=== PATIENT | female | born 1960 | race Caucasian/White ===

== ENCOUNTER 2022-02-07 12:27 | Emergency (ER) | payer OTHER, SELFPAY ==
[2022-02-07 12:32] VITALS: BP 198/92; PULSE 71; RESP 18; TEMP 36.8; O2SAT 94; BMI 51.6
--- NOTE | 2022-02-07 14:08 | USCV_ITS ---
Alexei Kae Age: 61 Gender: F : 1960 Exam Date: 02/07/2022 14:36 Ordering Phys: Dayan Wells MD Technologist: Dalton Irene [place] [facility] [place]ication: bilat leg pain and edema PROCEDURES: The venous duplex Doppler examination of both lower extremities was performed in the standard fashion. The following venous structures were evaluated: common femoral vein, profunda vein, proximal portion of the greater saphenous vein, superficial femoral vein, and the popliteal vein. In addition, the posterior tibial and peroneal trunk were evaluated. FINDINGS: Normal 2-D Doppler and augmentation and compressibility throughout the lower extremity venous structures. Additional imaging through the proximal calf veins also reveals no thrombus. Limited evaluation of the greater saphenous vein is patent with no thrombus. CONCLUSIONS No DVT bilateral lower extremities. Dr. Marisabel Rubio DO (Electronically Signed) Final Date: 07 February 2022 15:14 S
[2022-02-07 14:23] LABS: Basophils % 0.5 %; Eosinophils # 0.3 10^3/uL (0.0-0.8); Eosinophils % 3.6 %; Hematocrit 30.1 % (37.0-47.0); Hemoglobin 9.5 g/dL (11.5-15.3); Lymphocytes # 1.7 10^3/uL (0.8-4.8); Lymphocytes % 21.5 %; Mean Corpuscular HGB Conc 31.6 g/dL (30.0-36.0); Mean Corpuscular Hemoglobin 29.5 pg (28.0-34.0); Mean Corpuscular Volume 93.5 fl (81-99); Mean Platelet Volume 10.7 fL (7.4-10.4); Monocytes # 0.6 10^3/uL (0.2-0.9); Neutrophils # 5.39 10^3/uL (1.8-7.7); Neutrophils % 66.9 %; Nucleated Red Blood Cells % 0 %; Platelet Count 219 10^3/cmm (130-400); Red Blood Count 3.22 10^6/uL (4.1-5.3); Red Cell Distribution Width 13.6 % (12.1-15.1); White Blood Count 8.1 10^3/uL (4.0-10.0)
--- NOTE | 2022-02-07 14:35 | XR_ITS ---
WS: [email or web address] Exam: XR tibia fibula LT 2V [id number] Date/Time of Exam: 02/07/2022 2:40 PM Reason For Exam: leg pain No acute fracture or dislocation noted. Venous calcifications in the adjacent soft tissues. XR/XR tibia fibula LT 2V 31519 IMPRESSION: 1. No acute fracture or dislocation.
--- NOTE | 2022-02-07 14:35 | XR_ITS ---
WS: [email or web address] Exam: XR tibia fibula RT 2V [id number] Date/Time of Exam: 02/07/2022 2:40 PM Reason For Exam: leg pain No acute fracture or dislocation. Articular relationships are intact. XR/XR tibia fibula RT 2V 39713 IMPRESSION: 1. Negative right tibia and fibula.
--- NOTE | 2022-02-07 14:35 | XR_ITS ---
WS: [email or web address] Exam: XR ankle LT 2V 37908 Date/Time of Exam: 02/07/2022 2:40 PM Reason For Exam: ankle pain No acute fracture or dislocation. The ankle mortise is preserved. Mild degenerative change. XR/XR ankle LT 2V 76291 IMPRESSION: 1. No acute fracture or dislocation.
--- NOTE | 2022-02-07 14:35 | XR_ITS ---
WS: [email or web address] Exam: XR ankle RT 2V [id number] Date/Time of Exam: 02/07/2022 2:40 PM Reason For Exam: ankle pain No acute fracture or dislocation. The ankle mortise is preserved. Lateral soft tissue swelling. XR/XR ankle RT 2V 43648 IMPRESSION: 1. Lateral soft tissue swelling. No acute fracture.
--- NOTE | 2022-02-07 14:36 | ED_ITS ---
HPI - General Adult General: Chief complaint: General Medical Stated complaint: Internal Bleeding Time Seen by Provider: 02/07/22 13:51 History of Present Illness: Patient is a 61-year-old female with a history of atrial fibrillation on warfarin, CHF, diabetes on insulin presenting to the emergency room with concerns of lower extremity leg pain and bruises. Patient was told to come to the emergency room because she has been having bilateral leg pain since Sunday. In addition, patient noticed petechiae on the right ankle area. Patient denies any trauma or bruises. Patient has pain bilaterally in the lower extremity denies any new chest pain, shortness breath or palpitation cough, runny nose sore throat, abdominal pain, diarrhea melena/hematochezia. Of note, patient had a recent INR check from last week which showed the patient has a INR of greater than 4. Patient was told to come to the emergency room to check her INR. Onset:4 days ago Duration:4 days Location:home Severity:moderate Associated symptoms: Deny chest pain, dyspnea, nausea, palpitations or vomiting Review of Systems Const: Denies: fever(s) or chills Eyes: Denies: change in vision ENMT: Denies: mouth pain Card: Denies: chest pain or palpitations Resp: Denies: dyspnea or non-productive cough GI: Denies: abdominal pain, nausea, vomiting or diarrhea : Denies: dysuria Musc: Reports: extremity pain (+b/l leg pain and swelling) Skin/Breast: Reports: new lesions (+petchiae in the R ankle) Neuro: Denies: weakness in extremities Psych: Reports: other (Normal mood) [place]/Lymph: Denies: easy bruising PFS ED PFSH: Medical History Atrial fibrillation CHF (congestive heart failure) Diabetes Hypothyroidism Social History Smoking and tobacco status: never smoked Alcohol intake: never Substance/Drug Use: never Physical Exam Const: COMMON NORMALS: alert HENMT: COMMON NORMALS: atraumatic HEAD & SCALP: atraumatic MOUTH: moist mucous membranes not abnormal Eye: COMMON NORMALS: EOMs intact bilaterally and conjunctivae normal CONJUNCTIVA: Yes conjunctivae normal Neck/C-Spine: COMMON NORMALS: full ROM and supple Resp: COMMON NORMALS: normal respiratory effort and clear to auscultation bilaterally AUSCULTATION: clear to auscultation bilaterally Cardio: COMMON NORMALS: regular rate RATE: regular rate GI: COMMON NORMALS: Soft to palpation and non-tender PALPATION: Yes Soft to palpation Extremity: COMMON NORMALS: full ROM NARRATIVE EXTREMITY EXAM: 3+ pitting edema b/l in the lower extremities Mild tenderness to palpation over the lower extremities bilaterally Sensations intact in the legs bilaterally, 2+ DP/PT pulses bilaterally B/l tib/fib compartments soft and nontense Neuro: SENSORIUM/ORIENTATION: Yes alert MOTOR EXAM: No Abnormal motor strength present and Other motor observations present (no focal motor deficits) Psych: COMMON NORMALS: speech normal SPEECH: Yes normal speech MOOD & AFFECT: Yes euthymic mood Skin: OTHER: +petchaiea in the R ankle Course Vital Signs: Vital signs: Vital Signs Temperature 98.3 F 02/07/22 12:32 Pulse Rate 71 02/07/22 12:32 Respiratory Rate 18 02/07/22 12:32 Blood Pressure 198/92 02/07/22 12:32 Pulse Oximetry 94 02/07/22 12:32 Oxygen Delivery Me thod 02/07/22 12:32 MDM - General Adult Medical Decision Making 61-year-old female with history of atrial fibrillation on warfarin, CHF, hypothyroidism, diabetes presenting to the emergency room for evaluation of petechiae in the right ankle and bilateral leg pain. On physical exam, patient is neurovascularly intact. Patient has mild diffuse tenderness palpation of the lower legs. Patient has no signs of compartment syndrome and the tib-fib area bilaterally. X-ray and ultrasound negative for any acute findings. At the present, patient does not demonstrating signs of compartment syndrome or arterial occlusion in the lower extremities. Disposition: Discharge. Patient counseled regarding diagnostic impression, treatment plan. Patient given ED strict return precautions to return for continuation, worsening, or development of new symptoms. Instructed to f/u w/ PCP regarding symptoms today. Patient verbalized understanding. Lab Data : 02/07/22 14:10 02/07/22 14:10 Radiology Impressions Ankle X-Ray 02/07/22 14:35 IMPRESSION: 1. Lateral soft tissue swelling. No acute fracture. Tibia/Fibula X-Ray 02/07/22 14:35 IMPRESSION: 1. Negative right tibia and fibula. Laboratory Results WBC 8.1 10^3/uL (4.0-10.0) 02/07/22 14:10 RBC 3.22 10^6/uL (4.1-5.3) L 02/07/22 14:10 Hgb 9.5 g/dL (11.5-15.3) L 02/07/22 14:10 Hct 30.1 % (37.0-47.0) L 02/07/22 14:10 MCV 93.5 fl (81-99) 02/07/22 14:10 MCH 29.5 pg (28.0-34.0) 02/07/22 14:10 MCHC 31.6 g/dL (30.0-36.0) 02/07/22 14:10 RDW 13.6 % (12.1-15.1) 02/07/22 14:10 Plt Count 219 10^3/cmm (130-400) 02/07/22 14:10 MPV 10.7 fL (7.4-10.4) H 02/07/22 14:10 Neut % (Auto) 66.9 % 02/07/22 14:10 Lymph % (Auto) 21.5 % 02/07/22 14:10 [place] % (Auto) 7.0 % 02/07/22 14:10 Eos % (Auto) 3.6 % 02/07/22 14:10 Baso % (Auto) 0.5 % 02/07/22 14:10 Neut # (Auto) 5.39 10^3/uL (1.8-7.7) 02/07/22 14:10 Lymph # (Auto) 1.7 10^3/uL (0.8-4.8) 02/07/22 14:10 [place] # (Auto) 0.6 10^3/uL (0.2-0.9) 02/07/22 14:10 Eos # (Auto) 0.3 10^3/uL (0.0-0.8) 02/07/22 14:10 Baso # (Auto) 0.0 10^3/uL (0.0-0.1) 02/07/22 14:10 Nucleated RBC % (auto) 0 % 02/07/22 14:10 Nucleated RBCs # 0.0 /100WBC 02/07/22 14:10 PT 29.70 SECONDS (12.1-14.9) H 02/07/22 14:10 INR 2.79 (0.8-1.2) H 02/07/22 14:10 APTT 43.0 SECONDS (23.9-36.7) H 02/07/22 14:10 Sodium 142 mmol/L (136-145) 02/07/22 14:10 Potassium 4.8 mmol/L (3.5-5.1) 02/07/22 14:10 Chloride 106 mmol/L (98-107) 02/07/22 14:10 Carbon Dioxide 26 mmol/L (22-29) 02/07/22 14:10 Anion Gap 14.8 (5-19) 02/07/22 14:10 BUN 35 mg/dL (8-23) H 02/07/22 14:10 Creatinine 1.4 mg/dL (0.5-0.9) H 02/07/22 14:10 GFR Calculation 38.2 mL/min (90-130) L 02/07/22 14:10 Glucose 109 mg/dL (65-115) 02/07/22 14:10 Calculated Osmolality 303 mOsm/kg (285-295) H 02/07/22 14:10 Calcium 9.6 mg/dL (8.5-10.5) 02/07/22 14:10 Imaging Data Other Imaging: Radiologist's impression: [address] [address] XRay Report Signed Patient: Kae Linda Unit #: [id number] : 1960 Age/Sex: 61 / F ADM Date: 02/07/22 Loc: ER Room/Bed: Attending Dr: Ordering Provider/Ordering MD: Dayan Wells MD Date of Service: 02/07/22 Procedure(s): XR tibia fibula RT 2V 30707 Accession Number(s): [id number] Report Number: [id number] WS: [email or web address] Exam: XR tibia fibula RT 2V 68349 Date/Time of Exam: 02/07/2022 2:40 PM Reason For Exam: leg pain No acute fracture or dislocation. Articular relationships are intact. XR/XR tibia fibula RT 2V 67796 IMPRESSION: 1. Negative right tibia and fibula. ? Dictated By: Herbert Piña DO Signed By: Herbert Piña DO Signed Date/Time: 02/07/221512 DD/ [address] [place] [address] XRay Report Signed Patient: Kae Linda Unit #: [id number] : 1960 Age/Sex: 61 / F ADM Date: 02/07/22 Loc: ER Room/Bed: Attending Dr: Ordering Provider/Ordering MD: Dayan Wells MD Date of Service: 02/07/22 Procedure(s): XR tibia fibula LT 2V 45081 Accession Number(s): [id number] Report Number: [id number] WS: [email or web address] Exam: XR tibia fibula LT 2V 69630 Date/Time of Exam: 02/07/2022 2:40 PM Reason For Exam: leg pain No acute fracture or dislocation noted. Venous calcifications in the adjacent soft tissues. XR/XR tibia fibula LT 2V 56689 IMPRESSION: 1. No acute fracture or dislocation. ? Dictated By: Herbert Piña DO Signed By: Herbert Piña DO Signed Date/Time: 02/07/221512 DD/ [facility] [place] [address] XRay Report Signed Patient: Kae Linda Unit #: [id number] : 1960 Age/Sex: 61 / F ADM Date: 02/07/22 Loc: ER Room/Bed: Attending Dr: Ordering Provider/Ordering MD: Dayan Wells MD Date of Service: 02/07/22 Procedure(s): XR ankle RT 2V 74059 Accession Number(s): [id number] Report Number: [id number] WS: [email or web address] Exam: XR ankle RT 2V 95062 Date/Time of Exam: 02/07/2022 2:40 PM Reason For Exam: ankle pain No acute fracture or dislocation. The ankle mortise is preserved. Lateral soft tissue swelling. XR/XR ankle RT 2V 58764 IMPRESSION: 1. Lateral soft tissue swelling. No acute fracture. ? Dictated By: Herbert Piña DO Signed By: Herbert Piña DO Signed Date/Time: 02/07/221511 DD/ [address] [address] XRay Report Signed Patient: Kae Linda Unit #: [id number] : 1960 Age/Sex: 61 / F ADM Date: 02/07/22 Loc: ER Room/Bed: Attending Dr: Ordering Provider/Ordering MD: Dayan Wells MD Date of Service: 02/07/22 Procedure(s): XR ankle LT 2V 73008 Accession Number(s): [id number] Report Number: [id number] WS: [email or web address] Exam: XR ankle LT 2V 81281 Date/Time of Exam: 02/07/2022 2:40 PM Reason For Exam: ankle pain No acute fracture or dislocation. The ankle mortise is preserved. Mild degenerative change. XR/XR ankle LT 2V 88763 IMPRESSION: 1. No acute fracture or dislocation. ? Dictated By: Herbert Piña DO Signed By: Herbert Piña DO Signed Date/Time: 02/07/221511 DD/ [address] [address] Ultrasound Report Signed Patient: Kae Linda Unit #: [id number] : 1960 Age/Sex: 61 / F ADM Date: 02/07/22 Loc: ER Room/Bed: Attending Dr: Ordering Provider/Ordering MD: Dayan Wells MD Date of Service: 02/07/22 Procedure(s): [place] [address] Accession Number(s): [id number] Report Number: [id number] ?Kae Linda ?Age:? ? 61 ? ? Gender: ? ? F ?:? ? 1960 ?Exam Date: ? ? 02/07/2022 14:36 ?Ordering Phys: ? ? Dayan Wells? ?Technologist:? ? ? Dalton Irene ?Exam Location:? ? ? [facility] [place] ?MRN:? ? [id number] ?Account Number: ? ? ? [id number] ?Indication:? ? ? bilat leg pain and edema ?PROCEDURES: ?The venous duplex Doppler examination of both lower extremities ?was performed in the standard fashion. ?The following venous structures were evaluated: common femoral ?vein, profunda vein, proximal portion of the greater saphenous ?vein, superficial femoral vein, and the popliteal vein. ?In addition, the posterior tibial and peroneal trunk were ?evaluated. ?FINDINGS: ?Normal 2-D Doppler and augmentation and compressibility ?throughout the lower extremity venous structures.? Additional ?imaging through the proximal calf veins also reveals no ?thrombus.? Limited evaluation of the greater saphenous vein is ?patent with no thrombus. ?CONCLUSIONS ?No DVT bilateral lower extremities. ?Dr. Marisabel Rubio DO ?(Electronically Signed) ?Final Date:? ? ? 07 February 2022 ? 15:14 S Discharge Plan Discharge Patient Disposition: Home Clinical Impression: Leg pain Condition: Stable Prescriptions: New acetaminophen 500 mg tablet 500 mg PO Q6H PRN (Reason: pain) 5 Days Qty: 20 0RF No Action furosemide 40 mg tablet See Rx Instructions .ROUTE .COMPLEX Rx Instructions: 80 mg in the am and 40 mg in the evening atorvastatin 40 mg tablet 40 mg PO BEDTIME metoprolol succinate 50 mg tablet extended release 24 hr 100 mg PO DAILY warfarin 7.5 mg tablet 7.5 mg PO DAILY isosorbide mononitrate 30 mg tablet extended release 24 hr 30 mg PO DAILY hydralazine 25 mg tablet 25 mg PO TID Euthyrox 100 mcg tablet 100 mcg PO DAILY amoxicillin 250 mg capsule 250 mg PO BID gabapentin 100 mg capsule 100 mg PO TID Humalog KwikPen Insulin 100 unit/mL insulin pen See Rx Instructions .ROUTE .COMPLEX Rx Instructions: 12 unit subcutaneously 3-4 TIMES A DAY Vitamin D3 25 mcg (1,000 unit) Tablet 25 mcg PO DAILY Lantus Solostar U-100 Insulin 100 unit/mL (3 mL) insulin pen 30 unit SUBCUT BID Ozempic 0.25 mg or 0.5 mg(2 mg/1.5 mL) pen injector 0.25 mg SUBCUT Q7D Rx Instructions: ON SUNDAY Discharge Orders: Discharge ED (Routine); Ordered 02/07/22 Ordered By: Dayan Wells Discharge Diet: Advance as tolerated Discharge Activity: Increase activity as tolerated Patient Instructions: Leg Pain (ED) Activity Restrictions/Additional Instructions: Come back if you have any new or concerning issues. Please come back to the emergency room have any significant leg pain, swelling, fever or chills, numbness, or any new concerning complaints in the leg. Coding Level of Care Code ED [employer] Director for Bhavin Mustafa Exam Comprehensive
[2022-02-07 14:40] LABS: Anion Gap 14.8 (5-19); Blood Urea Nitrogen 35 mg/dL (8-23); Calcium 9.6 mg/dL (8.5-10.5); Carbon Dioxide 26 mmol/L (22-29); Chloride 106 mmol/L (98-107); Glomerular Filtration Rate 38.2 mL/min (90-130); Glucose 109 mg/dL (65-115); Osmolality Calculated 303 mOsm/kg (285-295); Potassium 4.8 mmol/L (3.5-5.1); Sodium 142 mmol/L (136-145)
[2022-02-07 14:46] LABS: INR 2.79 (0.8-1.2)
[2022-02-07] MEDS: acetaminophen 500 mg Tablet PO (14:52)
[2022-02-07 15:33] VITALS: BP 146/67; PULSE 68; RESP 19; TEMP 36.8; O2SAT 98
[2022-02-07 15:34] VITALS: BP 146/67; PULSE 68; RESP 19; TEMP 37.1; O2SAT 98
== END 2022-02-07 15:35 | disposition home or self-care (01) ==
PROVIDERS: Emergency Provider Emergency Medicine
DX: M79.605 Pain in left leg (principal); M79.604 Pain in right leg; Z79.01 Long term (current) use of anticoagulants; Z79.4 Long term (current) use of insulin; I50.9 Heart failure, unspecified; E11.9 Type 2 diabetes mellitus without complications
CPT/HCPCS: 73590; 73600; 80048; 85025; 85610; 85730; 93970; 99285